=== PATIENT | female | born 1975 | race Caucasian/White ===

== ENCOUNTER 2018-05-04 09:34 | Emergency (ER) | payer OTHER ==
[~2018-05-04] VITALS: Ht 154.9 cm; Wt 88.7 kg
[~2018-05-04 09:34] MED LIST: IBUP-1222 PO; IBUP-1223 PO
[2018-05-04 10:31] LABS: HCG UR SG 1.027 (1.003-1.030); MICROSCOPIC AUTO
[2018-05-04 10:33] LABS: CULTURE INDICATED? YES
--- NOTE | 2018-05-04 11:45 | NUR ---
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
--- NOTE | 2018-05-04 11:57 | NUR ---
PT AMBULATORY TO ROOM 14 W/ C/O BILAT FLANK PAIN STARTED 3 DAYS AGO. PT ALSO STATES SHE HAS HAD NAUSEA NO EMESIS AND "BLACK URINE". PT HAS HX GASTROPARESIS. PT STATES PAIN STARTED ON R SIDE AND THEN STARTED AGAIN AT L SIDE. PT RESTING ON [facility]. [facility].
[2018-05-04] MEDS ORDERED: KETOROLAC 30 MG/1 ML ONE (12:18)
[2018-05-04] MEDS ORDERED: KETOROLAC 30 MG/1 ML IVPush ONE (12:30)
[2018-05-04 12:40] LABS: BASOPHILS # (AUTO) 0.03 x10^3/uL (0-0.1); BASOPHILS % (AUTO) 0 % (0-1); EOSINOPHILS # (AUTO) 0.07 x10^3/uL (0-0.4); EOSINOPHILS % (AUTO) 1 % (1-7); LYMPHOCYTES # (AUTO) 1.01 x10^3/uL (1-3.4); LYMPHOCYTES % (AUTO) 10 % (22-44); MD NO; MEAN CORPUSCULAR HEMOGLOBIN 30.8 pg (27.0-34.8); MEAN CORPUSCULAR HGB CONC 33.5 g/dL (32.4-35.8); MEAN CORPUSCULAR VOLUME 91.9 fL (80-100); MEAN PLATELET VOLUME 6.8 fL (7.4-10.4); MONOCYTES # (AUTO) 0.49 x10^3/uL (0.2-0.8); MONOCYTES % (AUTO) 5 % (2-9); NEUTROPHILS # (AUTO) 8.48 x10^3/uL (1.8-6.8); NEUTROPHILS % (AUTO) 84 % (42-75); PLATELET COUNT 344 x10^3/uL (130-400); RED BLOOD COUNT 4.77 x10^6/uL (3.82-5.3); RED CELL DISTRIBUTION WIDTH 13.7 % (9.6-15.2)
[2018-05-04 12:54] LABS: ALANINE AMINOTRANSFERASE 27 U/L (12-78); ALBUMIN 3.8 g/dL (3.4-5.0); ANION GAP 7 mmol/L (5-15); CALCIUM 8.5 mg/dL (8.5-10.1); CHLORIDE 107 mmol/L (98-107)
--- NOTE | 2018-05-04 12:55 | NUR ---
PT RESTING ON GURNEY. NADN. FLORES.
[2018-05-04 12:56] LABS: ALKALINE PHOSPHATASE 108 U/L (45-117); BILIRUBIN,TOTAL 0.5 mg/dL (0.2-1.0); TOTAL PROTEIN 7.8 g/dL (6.4-8.2)
--- NOTE | 2018-05-04 13:18 | NUR ---
PT CHART REVIEWED AND PLACED FOR RECHECK.
[2018-05-04 14:04] VITALS: BP 109/62
--- NOTE | 2018-05-04 14:04 | NUR ---
ERP DR. HANCOCK AT BEDSIDE.
== END 2018-05-04 14:48 | disposition home or self-care (01) ==
LOC: ED 12:48
DX: N13.2 Hydronephrosis with renal and ureteral calculous obstruction (principal)
CPT/HCPCS: 36415; 74176; 80053; 81001; 81025; 83690; 85025; 87086; 96374; 99284; J1885